=== PATIENT | female | born 1970 | race Caucasian/White ===

== ENCOUNTER 2019-02-25 10:40 | Day surgery (SDC) | payer OTHER ==
[2019-02-22 09:03] VITALS: BMI 22.5
--- NOTE | 2019-02-25 03:26 | HP ---
History & Physical Update - History History: No Change - Physical Physical: No Change - Assessment Assessment: No Change - Plan Plan: No Change (No change in hP)
[2019-02-25] MEDS ORDERED: PROPOFOL 20 ML ONE ×3 (12:44)
[2019-02-25] MEDS ORDERED: MIDAZOLAM HCL 2 MG/2 ML SINGLE DOSE VIAL ONE (12:47)
[2019-02-25] MEDS ORDERED: ACETAMINOPHEN 325 MG TABLET (FP) PO PRN (12:49)
[2019-02-25] MEDS ORDERED: IBUPROFEN 400 MG TABLET (FP) PO PRN (12:49)
--- NOTE | 2019-02-25 12:51 | OP ---
Operative Note - Note: Operative Date: 02/25/19 Pre-Operative Diagnosis: Endometrial polyps Operation: Hysteroscopic myomectomy. Suction DC Post-Operative Diagnosis: Same as Pre-op Surgeon: Annamarie Duran Anesthesia: General Operative Report Dictated: Yes
[2019-02-25] MEDS ORDERED: oxyCODONE HCL 5 MG TABLET PO PRN (14:10)
[2019-02-25] MEDS ORDERED: ONDANSETRON 4 MG/2 ML VIAL IVPUSH PRN (14:10)
[2019-02-25] MEDS ORDERED: LACTATED RINGERS SOLUTION 1,000 ML IV SCH (14:15)
[2019-02-25 15:31] VITALS: TEMP 98.2
[2019-02-25] MEDS ORDERED: oxyCODONE HCL 5 MG TABLET ONE (17:19)
[2019-02-25] MEDS ORDERED: oxyCODONE HCL 5 MG TABLET PO ONE (17:20)
[2019-02-25 18:11] VITALS: BP 122/69; PULSE 85
--- NOTE | 2019-02-27 17:11 | PATH ---
Surgical Pathology Report Patient Name: URIEL ALEXANDER Med. Rec. #: [id number] /Age/Gender: 1970 (Age: 48) / F Account: [id number] Location: [facility] SURGICAL Taken: 02/25/2019 Received: 02/26/2019 Reported: 02/27/2019 Physicians: Annamarie Duran M.D. Specimen(s) Received A: ENDOMETRIAL POLYP B: RESECTED POLYP Clinical History Endometrial polyp Final Diagnosis A. ENDOMETRIAL POLYP, HYSTEROSCOPIC POLYPECTOMY: FRAGMENTS OF ENDOMETRIAL POLYP, SECRETORY ENDOMETRIUM, AND SCANT ENDOCERVICAL EPITHELIUM. B. RESECTED POLYP, SUCTION DILATION AND CURETTAGE: FRAGMENTS OF ENDOMETRIAL POLYP, SECRETORY ENDOMETRIUM, SUPERFICIAL MYOMETRIUM, AND SCANT BENIGN CERVICAL SQUAMOUS EPITHELIUM. Electronically Signed Ramandeep Dooley M.D. Gross Description A. Received in formalin labeled "endometrial polyp" are multiple irregular fragments of pink-hart and hemorrhagic soft tissue measuring 1.5 x 1.5 x 0.4 cm. Entire specimen is submitted in one cassette. B. Received in formalin labeled "resected polyp" are multiple irregular fragments of pink-hart and hemorrhagic soft tissue measuring 3 x 3 x 0.6 cm. Entire specimen is submitted in one cassette. MLSZ/02/26/2019 [email or web address]/02/26/2019
--- NOTE | 2019-03-04 15:52 | OP ---
DATE OF OPERATION: 02/25/2019 PREOPERATIVE DIAGNOSIS: Endometrial polyp. OPERATION: Hysteroscopic myomectomy, suction dilation and curettage. POSTOPERATIVE DIAGNOSIS: Endometrial polyp. SURGEON: Annamarie Duran MD ANESTHESIA: General. FINDINGS: Endometrial polyp seen within the endometrial cavity. DESCRIPTION OF PROCEDURE: Patient was taken to the operating room and placed in dorsal lithotomy position, prepped and draped in the usual sterile fashion. Time-out was performed in accordance with hospital regulation. Speculum was placed in the vagina. Anterior lip of the cervix was grasped with a single-tooth tenaculum. Cervix was then dilated to accommodate the operative hysteroscope. Visualization revealed endometrial polyps. Cautery and cutting of the endometrial polyps was then done followed by a dilation and curettage. The specimen was submitted to Pathology. A suction dilation and curettage was performed. All instruments were then removed. Patient tolerated procedure well. Was taken to the recovery room in stable condition. Estimated blood loss 20 mL. Kadi [id number]
== END 2019-02-25 17:55 | disposition home or self-care (01) ==
LOC: JASU-SURG 10:40
PROVIDERS: ATTEND Obstetrics & Gynecology
PROC: 0UB98ZX Excision of Uterus, Via Natural or Artificial Opening Endoscopic, Diagnostic (ICD-10-PCS; principal; 2019-02-25 12:30)
PROC: 0UDB8ZX Extraction of Endometrium, Via Natural or Artificial Opening Endoscopic, Diagnostic (ICD-10-PCS; 2019-02-25 12:30)
DX: N84.0 Polyp of corpus uteri (principal)
CPT/HCPCS: 36415; 84703; 86850; 86900; 86901; 88305-TC; 94760

== ENCOUNTER 2019-02-26 15:46 | Emergency (ER) | payer OTHER ==
--- NOTE | 2019-02-26 15:58 | PDOC ---
Rapid Medical Evaluation Time Seen by Provider: 02/26/19 15:54 Medical Evaluation: Allergies Allergy/AdvReac Type Severity Reaction Status Date / Time No Known Allergies Allergy Verified 02/22/19 09:06 02/26/19 15:55 Pt c/o: had d& c done yesterday for endo met polyp, states now with pain to susy hips and unable to walk, normally with hip pain with cane but not to this extent Pt on brief exam: no abd distention, able to lift legs independently in wheelchair but with discomfort Pt ordered for: none Pt to proceed to the ED Discharge Disposition - Diagnosis Hip pain - Referrals - Patient Instructions - Post Discharge Activity
[2019-02-26 16:00] VITALS: BMI 23.0
[2019-02-26] MEDS ORDERED: METHOCARBAMOL 500 MG TABLET PO ONE (18:11)
[2019-02-26] MEDS ORDERED: KETOROLAC TROMETHAMINE 60 MG/2 ML VIAL IM ONE (18:12)
[2019-02-26] MEDS ORDERED: METHOCARBAMOL 500 MG TABLET ONE (18:21)
[2019-02-26] MEDS ORDERED: KETOROLAC TROMETHAMINE 60 MG/2 ML VIAL ONE (18:21)
--- NOTE | 2019-02-26 18:50 | PDOC ---
History of Present Illness - General Chief Complaint: Pain Stated Complaint: POST-OP PAIN Time Seen by Provider: 02/26/19 15:54 History Source: Patient Exam Limitations: Clinical Condition - History of Present Illness Initial Comments: 02/26/19 18:42 Patient h/o anemia, and uterine polyp s/p D&C with polypectomy and hysteroscopic myomectomy yesterday who present with complains of worsening posterior thigh pains since surgery last night and has been worsening since today. Patient report pain started right after the surgery which she was given 1 dose of pain medication yesterday but does not recall the name. Patient report increased pain to right thigh with movement. Patient did not take anything for pain today. Patient also report lower abdominal pain from D&C procedure. Denies N/V, fever, chills, diarrhea, constipation Is this a multiple visit Asthma Patient?: No Timing/Duration: 24 hours, constant Past History - Past Medical History Allergies/Adverse Reactions: Allergies Allergy/AdvReac Type Severity Reaction Status Date / Time No Known Allergies Allergy Verified 02/26/19 15:57 Home Medications: Ambulatory Orders Doxepin HCl [Sinequan -] 10 mg PO HS 07/24/18 Ferrous Sulfate 325 mg PO DAILY 07/24/18 Meclizine HCl 25 mg PO PRN PRN 07/24/18 Sennosides [Senna Laxative] 2 tab PO DAILY 07/24/18 Ibuprofen [Motrin -] 400 mg PO PRN 02/25/19 Anemia: Yes Asthma: Yes (seasonal) Cancer: No Cardiac Disorders: No CVA: No COPD: No CHF: No Dementia: No Diabetes: No GI Disorders: No Disorders: No HTN: No Hypercholesterolemia: No Liver Disease: No Seizures: No Thyroid Disease: No - Surgical History Orthopedic Surgery: Yes (hip surgery as a child for dislocation) - Psycho Social/Smoking Cessation Hx Smoking History: Never smoked Have you smoked in the past 12 months: No Number of Cigarettes Smoked Daily: 1 Information on smoking cessation initiated: No 'Breaking Loose' booklet given: 02/25/19 Hx Alcohol Use: No Drug/Substance Use Hx: No Substance Use Type: Alcohol Hx Substance Use Treatment: No Review of Systems - Review of Systems Able to Perform ROS?: Yes Is the patient limited Moroccan proficient: No Constitutional: Yes: Weakness (b/l legs) HEENTM: No: Symptoms Reported, See HPI, Eye Pain, Blurred Vision, Tearing, Recent change in vision, Double Vision, Cataracts, Ear Pain, Ocular Prothesis, Ear Discharge, Nose Pain, Nose Congestion, Tinnitus, Nose Bleeding, Hearing Loss , Throat Pain, Throat Swelling, Mouth Pain, Dental Problems, Difficulty Swallowing, Mouth Swelling, Other Respiratory: No: Symptoms reported, See HPI, Cough, Orthopnea, Shortness of Breath, SOB with Exertion, SOB at Rest, Stridor, Wheezing, Productive cough, Hemoptysis, Other Cardiac (ROS): No: Symptoms Reported, See HPI, Chest Pain, Edema, Irregular Heart Rate, Lightheadedness, Palpitations, Syncope, Chest Tightness, Other ABD/GI: No: Nausea, Vomiting Musculoskeletal: Yes: Symptoms Reported, See HPI, Back Pain (chronic back pain) , Muscle Pain (posterior thigh pain RT>left), Muscle Weakness (b/l thigh) Integumentary: No: Symptoms Reported Neurological: Yes: Weakness (b/l LE). No: Symptoms reported, Numbness, Paresthesia, Tingling, Dizziness All Other Systems: Reviewed and Negative *Physical Exam - Vital Signs Last Vital Signs Temp Pulse Resp BP Pulse Ox 98.7 F 96 H 20 132/71 100 02/26/19 15:57 02/26/19 15:57 02/26/19 15:57 02/26/19 15:57 02/26/19 15:57 - Physical Exam Comments: 02/26/19 18:40 GENERAL: Well developed, well nourished. Awake and alert in moderate acute distress. CARDIOVASCULAR: Regular rate and rhythm. No murmurs, rubs, or gallops. PULMONARY: No evidence of respiratory distress. Lungs clear to auscultation bilaterally. No wheezing, rales or rhonchi. ABDOMINAL: Soft. Non-tender. Non-distended. No rebound or guarding. No organomegaly. Normoactive bowel sounds MUSCULOSKELETAL : moderate tenderness to posterior b/l thigh with increased pain to right > left. no radiculopathy. no tenderness to hip. No bony deformities SKIN: Warm and dry. Normal capillary refill. No rashes. No jaundice. NEUROLOGICAL: Alert, awake, appropriate. No motor deficits in the lower extremities. Gait is normal without ataxia. PSYCHIATRIC: Cooperative. Good eye contact. Appropriate mood and affect. General Appearance: Yes: Nourished, Appropriately Dressed, Apparent Distress ED Treatment Course - RADIOLOGY Radiology Studies Ordered: Category Date Time Status HIP & PELVIS-LEFT [RAD] Stat Radiology 02/26/19 18:25 Ordered HIP & PELVIS-RIGHT [RAD] Stat Radiology 02/26/19 18:25 Ordered - Medications Given in the ED: ED Medications Discontinued Medications Generic Name Dose Route Start Last Admin Trade Name Rebeca PRN Reason Stop Dose Admin Ketorolac Tromethamine 60 mg 02/26/19 18:12 02/26/19 18:27 Toradol Injection - IM 02/26/19 18:13 60 mg ONCE ONE Administration Methocarbamol 500 mg 02/26/19 18:11 02/26/19 18:27 Robaxin - PO 02/26/19 18:12 500 mg ONCE ONE Administration Medical Decision Making - Medical Decision Making 02/26/19 18:50 Patient h/o anemia, and uterine polyp s/p D&C with polypectomy and hysteroscopic myomectomy yesterday who present with complains of worsening posterior thigh pains since surgery last night and has been worsening since today. Patient report pain started right after the surgery which she was given 1 dose of pain medication yesterday but does not recall the name. Patient report increased pain to right thigh with movement. Patient did not take anything for pain today. Patient also report lower abdominal pain from D&C procedure. Denies N/V, fever, chills, diarrhea, constipation Exam significant for moderate tenderness to posterior right thigh with mild TTP over left thigh. Patient symptoms likely due to spasm vs left likely cord compression or DVT. Toradol 60mg IM ordered for pain, Robaxin 500mg PO ordered for spasm. hip x- rays ordered to r/o acute hip pathology. CMP and CPK ordered for r/o rhabdomyolsis 02/26/19 19:18 Patient with mild improvement in pain after Toradol and robaxin. Patient pending hip x-rays and bloodwork. [facility]/u care Discharge - Discharge Information Problems reviewed: Yes Clinical Impression/Diagnosis: Hip pain Condition: Stable - Follow up/Referral Referrals: Neri Nava [Primary Care Provider] - - Patient Discharge Instructions - Post Discharge Activity
[2019-02-26 20:19] LABS: ALBUMIN 3.8 g/dl (3.4-5.0); BILIRUBIN,TOTAL 0.4 mg/dL (0.2-1); BLOOD UREA NITROGEN 5.7 mg/dL (7-18); CALCIUM 8.8 mg/dL (8.5-10.1); CREATININE 0.5 mg/dL (0.55-1.3); POTASSIUM 3.9 mmol/L (3.5-5.1); TOT PROT 7.5 g/dl (6.4-8.2)
--- NOTE | 2019-02-26 20:42 | PDOC ---
*Physical Exam - Vital Signs Last Vital Signs Temp Pulse Resp BP Pulse Ox 98.7 F 96 H 20 132/71 100 02/26/19 15:57 02/26/19 15:57 02/26/19 15:57 02/26/19 15:57 02/26/19 15:57 ED Treatment Course - LABORATORY CBC & Chemistry Diagram: 02/26/19 19:35 - ADDITIONAL ORDERS Additional order review: Laboratory Results 02/26/19 02/26/19 19:35 19:35 Sodium 136 Potassium 3.9 Chloride 103 Carbon Dioxide 23 Anion Gap 10 BUN 5.7 L Creatinine 0.5 L Est GFR (CKD-EPI)AfAm 130.79 Est GFR (CKD-EPI)NonAf 112.85 Random Glucose 103 Calcium 8.8 Total Bilirubin 0.4 AST 21 ALT 16 Alkaline Phosphatase 57 Creatine Kinase 138 Total Protein 7.5 Albumin 3.8 - Medications Given in the ED: ED Medications Discontinued Medications Generic Name Dose Route Start Last Admin Trade Name Freq PRN Reason Stop Dose Admin Ketorolac Tromethamine 60 mg 02/26/19 18:12 02/26/19 18:27 Toradol Injection - IM 02/26/19 18:13 60 mg ONCE ONE Administration Methocarbamol 500 mg 02/26/19 18:11 02/26/19 18:27 Robaxin - PO 02/26/19 18:12 500 mg ONCE ONE Administration ED Progress Note - Progress Note Progress Note: 02/27/19 00:53 US: negative for DVT XRay b/l hip degenerative disease patient d/miles home with muscle relaxant, pain control Discharge - Discharge Information Problems reviewed: Yes Clinical Impression/Diagnosis: Hip pain Qualifiers: Laterality: bilateral Qualified Code(s): M25.551 - Pain in right hip Musculoskeletal leg pain Qualifiers: Laterality: unspecified laterality Qualified Code(s): M79.606 - Pain in leg, unspecified Condition: Stable - Additional Discharge Information Prescriptions: Cyclobenzaprine HCl [Flexeril -] 10 mg PO TID PRN #10 tablet PRN Reason: Muscle Spasms Ibuprofen 600 mg PO QID PRN #20 tablet PRN Reason: Pain - Follow up/Referral Referrals: Neri Nava [Primary Care Provider] - - Patient Discharge Instructions Patient Printed Discharge Instructions: DI for Muscle Spasm Additional Instructions: Apply ice to the area for the first 24 hours. Then alternate with ice and heat after. Take ibuprofen every 6 hours as needed for pain. Take Flexeril as prescribed for muscle spasm. Flexeril can make you sleepy, do not drive or operate heavy machinery after taking the medication. follow up with your doctor as soon as possible. Return to the emergency room for any worsening symptoms. - Post Discharge Activity Work/Back to School Note: Back to Work
[2019-02-26 21:27] VITALS: TEMP 98.1
[2019-02-27 02:02] VITALS: BP 125/75; PULSE 86
== END 2019-02-26 22:00 | disposition home or self-care (01) ==
LOC: JER 15:46
PROC: 3E0233Z Introduction of Anti-inflammatory into Muscle, Percutaneous Approach (ICD-10-PCS; principal; 2019-02-26)
DX: G89.18 Other acute postprocedural pain (principal); M25.552 Pain in left hip; M25.551 Pain in right hip; M79.651 Pain in right thigh; M79.652 Pain in left thigh; M16.0 Bilateral primary osteoarthritis of hip; Z98.890 Other specified postprocedural states; D64.9 Anemia, unspecified; Z87.09 Personal history of other diseases of the respiratory system
CPT/HCPCS: 36415; 73523-TC-FY; 80053; 82550; 93970-TC; 96372; 99283-25

== ENCOUNTER 2022-10-23 19:51 | Observation (INO) | payer OTHER ==
[2022-10-23] MEDS ORDERED: ACETAMINOPHEN 500 MG TABLET (FP) PO ONE (21:02)
[2022-10-23] MEDS ORDERED: ACETAMINOPHEN 325 MG TABLET (FP) ONE (21:06)
[2022-10-23 21:20] LABS: BASO % 0.3 % (0-2.0); EOS % 0.4 % (0-4.5); HEMATOCRIT 43.7 % (32.4-45.2); HEMOGLOBIN 14.5 GM/dL (10.7-15.3); LYMPH % 14.8 % (8-40); MCH 30.8 pg (25.7-33.7); MCHC 33.3 g/dl (32.0-36.0); MEAN CELL VOLUME 92.6 fl (80-96); MEAN PLT VOLUME 9.7 fl (7.5-11.1); MONO % 8.4 % (3.8-10.2); NEUT % 76.1 % (42.8-82.8); PLATELET COUNT 226 10^3/uL (134-434); RBC 4.72 M/mm3 (3.60-5.2); WHITE BLOOD COUNT 9.9 K/mm3 (4.0-10.0)
[2022-10-23 21:22] LABS: INR 1.19 (0.83-1.09); PROTHROMBIN TIME (PATIENT) 13.8 SEC (9.7-13.0)
[2022-10-23 21:25] LABS: ACTIVATED PTT 35.4 SECONDS (25.2-36.5)
[2022-10-23 21:30] LABS: EPI CELLS 9 /uL (0-25.1); HYALINE CASTS 0 /uL (0-3.1); PH,URINE 5.5 (5.0-8.0); URINE APPEARANCE CLEAR; URINE BACTERIA 113 /uL (0-1359); URINE BILIRUBIN NEGATIVE (NEGATIVE); URINE COLOR YELLOW; URINE GLUCOSE (UA) NEGATIVE (NEGATIVE); URINE KETONE 2+ (NEGATIVE); URINE LEUK ESTERASE NEGATIVE (NEGATIVE); URINE NITRITE NEGATIVE (NEGATIVE); URINE PROTEIN NEGATIVE (NEGATIVE); URINE RBC 22 /uL (0-23.9); URINE UROBILINOGEN 0.2 mg/dL (0.2-1.0); URINE WBC 6 /uL (0-25.8)
[2022-10-23 21:32] LABS: POTASSIUM 3.8 mmol/L (3.5-5.1)
[2022-10-23 21:34] LABS: BLOOD UREA NITROGEN 13.3 mg/dL (7-18)
[2022-10-23 21:38] LABS: CREATININE 0.5 mg/dL (0.55-1.3)
[2022-10-23 21:39] LABS: BILIRUBIN,TOTAL 0.3 mg/dL (0.2-1); TOT PROT 7.7 g/dl (6.4-8.2)
[2022-10-23 22:11] LABS: SYPHILIS W/ RPR CONF NON-REACTIVE (NONREACTIVE)
[2022-10-23 22:40] LABS: HIV INTERPRETATION NEGATIVE (NEGATIVE)
[2022-10-23] MEDS ORDERED: ASPIRIN 81 MG CHEWABLE TABLETS PO ONE (23:31)
[2022-10-23] MEDS ORDERED: ASPIRIN 81 MG CHEWABLE TABLETS ONE (23:33)
[2022-10-24] MEDS ORDERED: DOCUSATE SODIUM 100 MG CAPSULE (FP) PO PRN (00:16)
[2022-10-24] MEDS ORDERED: MELATONIN 5 MG TABLETS PO PRN (02:27)
[2022-10-24] MEDS ORDERED: ACETAMINOPHEN 1000 MG/100 ML BAG IVPB PRN (03:00)
[2022-10-24 11:16] LABS: IRON SERUM 57 ug/dL (50-175); TOTAL IRON BINDING CAPACITY 336 ug/dL (250-450)
[2022-10-24] MEDS ORDERED: HEPARIN NA (PORCINE) 5,000 UNITS/ML 1ML VIAL ONE (12:16)
[2022-10-24] MEDS: HEPARIN NA (PORCINE) 5,000 UNITS/ML 1ML VIAL SQ SCH ×2 (12:20→21:34)
[2022-10-24 13:48] VITALS: BMI 24.6
[2022-10-25] MEDS ORDERED: ACETAMINOPHEN 325 MG TABLET (FP) PO PRN (03:00)
[2022-10-25 08:21] LABS: POTASSIUM 4.5 mmol/L (3.5-5.1)
[2022-10-25 08:29] LABS: BLOOD UREA NITROGEN 11.5 mg/dL (7-18)
[2022-10-25 08:32] LABS: CREATININE 0.4 mg/dL (0.55-1.3); PHOSPHOROUS 3.9 mg/dL (2.5-4.9)
[2022-10-25 08:46] LABS: BASO % 0.3 % (0-2.0); HEMATOCRIT 41.8 % (32.4-45.2); HEMOGLOBIN 13.6 GM/dL (10.7-15.3); LYMPH % 36.7 % (8-40); MCH 30.8 pg (25.7-33.7); MCHC 32.6 g/dl (32.0-36.0); MEAN CELL VOLUME 94.6 fl (80-96); MONO % 10.4 % (3.8-10.2); NEUT % 51.6 % (42.8-82.8); RBC 4.42 M/mm3 (3.60-5.2); RDW 13.7 % (11.6-15.6); WHITE BLOOD COUNT 7.6 K/mm3 (4.0-10.0)
[2022-10-25 08:47] LABS: MEAN PLT VOLUME 10.8 fl (7.5-11.1); PLATELET COUNT 194 10^3/uL (134-434)
[2022-10-25 09:20] VITALS: RESP 18
[2022-10-25] MEDS: HEPARIN NA (PORCINE) 5,000 UNITS/ML 1ML VIAL SQ SCH (09:22)
[2022-10-25 09:40] LABS: PLATELET ESTIMATE ADEQUATE
[2022-10-25] MEDS ORDERED: ENOXAPARIN NA (PORCINE) 40 MG/0.4 ML DISP.SYRIN SQ SCH (10:00)
[2022-10-25 11:31] LABS: ALBUMIN 3.7 g/dl (3.4-5.0)
[2022-10-25 11:35] LABS: BILIRUBIN,DIRECT 0.1 mg/dL (0.0-0.2)
[2022-10-25 11:36] LABS: BILIRUBIN,TOTAL 0.2 mg/dL (0.2-1); TOT PROT 7.3 g/dl (6.4-8.2)
[2022-10-25 14:16] VITALS: BP 114/60; PULSE 86; TEMP 98.3
== END 2022-10-25 14:37 | disposition home or self-care (01) ==
LOC: JER 19:51 → JERBED 23:39 → J4W 10-24 12:05 → JERBED 10-24 12:05 → J4W 10-24 12:41
PROVIDERS: ADMIT Internal Medicine; ATTEND Family Medicine
PROC: 3E033NZ Introduction of Analgesics, Hypnotics, Sedatives into Peripheral Vein, Percutaneous Approach (ICD-10-PCS; principal; 2022-10-23)
PROC: 3E023GC Introduction of Other Therapeutic Substance into Muscle, Percutaneous Approach (ICD-10-PCS; 2022-10-23)
DX: I44.7 Left bundle-branch block, unspecified (principal); N80.00 Endometriosis of the uterus, unspecified; R07.9 Chest pain, unspecified; D64.9 Anemia, unspecified; M25.521 Pain in right elbow; Q65.89 Other specified congenital deformities of hip; W18.39XA Other fall on same level, initial encounter; Y93.89 Activity, other specified; Y92.89 Other specified places as the place of occurrence of the external cause; N92.0 Excessive and frequent menstruation with regular cycle; D25.9 Leiomyoma of uterus, unspecified
CPT/HCPCS: 0241U-QW; 36415; 70450-TC; 71045-TC-FY; 73070-TC-RT-FY; 80048; 80053; 80076; 81003; 82607; 82746; 83540; 83550; 83735; 84100; 84439; 84443; 84484; 85025; 85610; 85730; 86780; 86850; 86900; 86901; 87086; 87389; 93005; 93010; 93306-TC; 96372; 96374; 97116-GP; 97161-GP; 99285-25; G0378; J1644